=== PATIENT | female | born 1980 | race Caucasian/White ===

== ENCOUNTER 2017-06-21 06:42 | Inpatient (IN) | payer MEDICAID ==
[2017-06-21] VITALS (9 sets, daily range): BP systolic 98–129; BP diastolic 54–67; PULSE 60–77; RESP 16–20
[~2017-06-21] VITALS: Ht 146.1 cm; Wt 59.4 kg
[2017-06-21] MEDS ORDERED: EPHEDrine SULFATE 50 MG/5 ML SYG ONE (07:00)
[2017-06-21] MEDS ORDERED: METHYLERGONOVINE 0.2 MG INJ IM PRN ×2 (07:00→13:30)
[2017-06-21] MEDS ORDERED: CARBOPROST 250 MCG INJ IM PRN ×2 (07:00→13:30)
[2017-06-21] MEDS ORDERED: OXYTOCIN 30 UNITS/LR 500 ML IV SCH (07:00)
[2017-06-21] MEDS ORDERED: LACTATED RINGER'S 1,000 ML IV ONE (07:00)
[2017-06-21] MEDS ORDERED: MISOPROSTOL 200 MCG TAB PR PRN ×2 (07:00→13:30)
[2017-06-21] MEDS ORDERED: OXYTOCIN 30 UNITS/LR 500 ML IV PRN ×2 (07:00→13:30)
[2017-06-21] MEDS ORDERED: OXYTOCIN 30 UNITS/LR 500 ML BAG IV ONE (07:00)
[2017-06-21] MEDS ORDERED: CEFAZOLIN 2 GM/50 ML (PMX) 50 ML IV SCH (07:00)
[2017-06-21] MEDS: LACTATED RINGER'S 1,000 ML IV SCH ×2 (08:05→10:20)
[2017-06-21 08:34] LABS: BASOPHILS % 0.5 % (0.0-2.0); EOSINOPHILS # 0.1 10^3/ul (0.0-0.5); EOSINOPHILS % 1.2 % (0.0-7.0); HEMATOCRIT 37.9 % (37.0-47.0); HEMOGLOBIN 13.3 g/dl (12.0-16.0); LYMPHOCYTES # 1.4 10^3/ul (0.8-2.9); MEAN CORPUSCULAR HGB CONC 35.1 g/dl (32.0-37.0); MEAN CORPUSCULAR VOLUME 91.1 fl (82.0-101.0); MEAN PLATELET VOLUME 12.6 fl (7.4-10.4); MONOCYTE # 0.6 10^3/ul (0.3-0.9); MONOCYTES % 11.1 % (0.0-11.0); NEUTROPHIL # 3.6 10^3/ul (1.6-7.5); NEUTROPHILS % 61.5 % (39.0-77.0); PLATELET COUNT 129 10^3/UL (140-415); RED BLOOD COUNT 4.16 10^6/ul (4.20-5.40); RED CELL DISTRIBUTION WIDTH 14.5 % (11.5-14.5); WHITE BLOOD COUNT 5.8 10^3/ul (4.8-10.8)
[2017-06-21 09:06] LABS: INR 1.05; PROTIME 13.7 Sec (12.2-14.2); PT RATIO 1.1
[2017-06-21 09:07] LABS: PARTIAL THROMBOPLASTIN TIME 31.4 Sec (25.0-35.0)
[2017-06-21] MEDS ORDERED: morphine SULFATE/PF (10 MG/10 ML) INJ ONE (10:11)
[2017-06-21] MEDS ORDERED: PHENYLephrine (100 MCG/ML) 5ML SYG ONE ×2 (10:20→10:56)
--- NOTE | 2017-06-21 10:30 | HP ---
Date/Time of Note Date/Time of Note DATE: 06/21/17 TIME: 10:24 OB - History Hx of Present Free Text/Dictation This is a 36 years old female 03 history of 2 previous section in between admitted to [facility] 39 weeks gestation for repeat and bilateral tubal ligation patient has been under the care of the [place] [facility] her not complicated with gestational diabetes -induced hypertension or any other serious medical or surgical condition of 2 previous Estimated Due Date: Jun 28, 2017 : 4 Para: 3 Care: Good Care Ultrasounds: Normal mid trimester US Obstetrical Complications: None Medical Complications: None Past Family/Social History * Past Medical, Surgical, Family and Obstetric Histories reviewed from chart. Rubella: immune RPR/VDRL: Negative GBS Status: Negative OB Admission Exam Vital Signs Vital Signs Vital Signs Date Time Temp Pulse Resp B/P Pulse Ox O2 Delivery O2 Flow Rate FiO2 06/21/17 07:15 97.9 70 20 118/67 Room Air Physical Exam Heart: Rhythm Normal Lungs: Clear, Equal Membranes: Intact Heart Rate: 130's Decelerations: No Decelerations Varibility: Absent Last 72 hours Lab Results CBC & BMP 06/21/17 08:05 OB Assessment/Plan Reason for admission: other (36 years old history of 2 previous C- section admitted for repeat bilateral tubal ligation) Plan: Other (36 years old 3 of 2 previous section request for bilateral tubal ligation at the time of section admitted at 39 weeks gestation undergoing a repeat and bilateral tubal ligation and has been counseled regarding the failure rate of tubal ligation increased risk of ectopic and future failure to conceive and also she has been counseled regarding complication of the surgery including bowel bladder injury infection hemorrhage and hematoma and she is willing to go ahead with this procedure) MARY JO HOLLAND MD Jun 21, 2017 10:30
[2017-06-21] MEDS ORDERED: ONDANSETRON 4 MG INJ ONE ×2 (10:46→11:57)
[2017-06-21] MEDS ORDERED: METOCLOPRAMIDE 10 MG INJ ONE (11:57)
[2017-06-21] MEDS ORDERED: ONDANSETRON 4 MG INJ IV PRN ×2 (12:00)
[2017-06-21] MEDS ORDERED: HYDROmorphONE (0.2 MG/ML) 10ML SYG IV PRN ×3 (12:00)
[2017-06-21] MEDS ORDERED: KETOROLAC 30 MG INJ IV PRN (12:00)
[2017-06-21] MEDS ORDERED: FENTAnyl 50 MCG/ML VIAL IV PRN ×2 (12:00)
[2017-06-21] MEDS ORDERED: DIPHENHYDRAMINE 50 MG INJ IV PRN ×2 (12:00)
[2017-06-21] MEDS ORDERED: METOCLOPRAMIDE 10 MG INJ IV PRN (12:00)
[2017-06-21] MEDS ORDERED: HYDROmorphONE 1 MG/ML SYG IV PRN ×2 (12:00)
[2017-06-21] MEDS ORDERED: NALOXONE (0.4 MG/ML) INJ IV PRN (12:00)
[2017-06-21] MEDS ORDERED: ZOLPIDEM 5 MG TAB PO PRN (12:00)
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
[2017-06-21] MEDS ORDERED: LANOLIN 7 GM TUBE TOP PRN (13:30)
[2017-06-21] MEDS ORDERED: CEFAZOLIN 1 GM/50 ML (PMX) 50 ML IVPB SCH (13:30)
[2017-06-21] MEDS ORDERED: HYDROCODONE/APAP (5/325) TAB PO PRN ×2 (13:30)
[2017-06-21] MEDS ORDERED: OXYCODONE/ACETAMINOPHEN (5/325) TAB PO PRN ×2 (13:30)
[2017-06-21] MEDS: OXYTOCIN 30 UNITS/LR 500 ML IV SCH ×3 (17:10→21:23)
[2017-06-21] MEDS: KETOROLAC 30 MG INJ IV PRN (21:22)
[2017-06-22] MEDS: OXYTOCIN 30 UNITS/LR 500 ML IV SCH ×2 (01:57→07:03)
[2017-06-22 04:30] VITALS: BP 89/50; PULSE 77; RESP 18
[2017-06-22 07:21] LABS: BASOPHILS % 0.1 % (0.0-2.0); EOSINOPHILS % 0.1 % (0.0-7.0); HEMATOCRIT 36.9 % (37.0-47.0); HEMOGLOBIN 12.5 g/dl (12.0-16.0); LYMPHOCYTES # 1.4 10^3/ul (0.8-2.9); LYMPHOCYTES % 13.5 % (15.0-51.0); MEAN CORPUSCULAR HEMOGLOBIN 30.9 pg (29.0-33.0); MEAN CORPUSCULAR HGB CONC 33.9 g/dl (32.0-37.0); MEAN CORPUSCULAR VOLUME 91.1 fl (82.0-101.0); MEAN PLATELET VOLUME 12.1 fl (7.4-10.4); MONOCYTE # 0.7 10^3/ul (0.3-0.9); MONOCYTES % 6.4 % (0.0-11.0); NEUTROPHIL # 8.3 10^3/ul (1.6-7.5); NEUTROPHILS % 79.7 % (39.0-77.0); PLATELET COUNT 134 10^3/UL (140-415); RED BLOOD COUNT 4.05 10^6/ul (4.20-5.40); RED CELL DISTRIBUTION WIDTH 14.7 % (11.5-14.5); WHITE BLOOD COUNT 10.4 10^3/ul (4.8-10.8)
[2017-06-22 08:15] VITALS: BP 113/59; PULSE 94; RESP 19
[2017-06-22] MEDS: SENNA/DOCUSATE NA (8.6MG/50MG) TAB PO SCH ×2 (09:23→21:13)
[2017-06-22] MEDS: KETOROLAC 30 MG INJ IV PRN (11:04)
[2017-06-22 12:00] VITALS: BP 124/67; PULSE 81; RESP 19
[2017-06-22] MEDS: IBUPROFEN 600 MG TAB PO SCH ×3 (12:00→23:56)
--- NOTE | 2017-06-22 12:24 | QN ---
Documentation Comment POD#1 is stable afebrile No VB +Flatus+Adequate urine VS stable Gen NAD Abd soft NT ND Dressing to be removed Genitalia No blood at perinium --->discharge plan tomorrow --->ambulation HERACLIO ALFARO M.D. Jun 22, 2017 12:23
[2017-06-22 16:15] VITALS: BP 107/69; PULSE 82; RESP 19
[2017-06-22 20:05] VITALS: BP 100/59; PULSE 97; RESP 17
[2017-06-23 04:30] VITALS: BP 103/61; PULSE 78; RESP 20
[2017-06-23] MEDS: IBUPROFEN 600 MG TAB PO SCH ×4 (05:47→23:53)
[2017-06-23 09:15] VITALS: BP 105/56; PULSE 88; RESP 16
[2017-06-23] MEDS: SENNA/DOCUSATE NA (8.6MG/50MG) TAB PO SCH ×2 (09:59→21:27)
--- NOTE | 2017-06-23 12:07 | CONS ---
Date/Time of Note Date/Time of Note DATE: 06/23/17 TIME: 12:06 Consultation Date/Type/Reason Admit Date/Time Jun 21, 2017 at 06:42 Initial Consult Date 06/22/17 Type of Consultation: Anesthesiology Reason for Consultation follow up 24 HR Interval Summary Free Text/Dictation Pt seen and examined on 06/22/17 is POD#1 s/p repeat c/s and BTL. Pt had spinal duramorph injection for post op pain and states her pain is adequately controlled. No N/V/D/C/NOBLES/Numbness in lower extremities. Will follow up. Constitutional: improved, no complaints Exam/Review of Systems Vital Signs Vitals Vital Signs Date Time Temp Pulse Resp B/P Pulse Ox O2 Delivery O2 Flow Rate FiO2 06/23/17 09:15 98.5 88 16 105/56 Room Air 06/21/17 14:00 100 Intake and Output 06/22/17 06/22/17 06/23/17 14:59 22:59 06:59 Intake Total 1240 ml Output Total 600 ml 450 ml Balance 640 ml -450 ml Results Result Diagram: 06/22/17 0703 Medications Medications Current Medications Acetaminophen/ Hydrocodone Bitart ([place] (5/325)) 1 tab Q4H PRN PO PAIN LEVEL 4 -6; Start 06/21/17 at 13:30 Acetaminophen/ Hydrocodone Bitart ([place] (5/325)) 2 tab Q4H PRN PO PAIN LEVEL 7 -10; Start 06/21/17 at 13:30 Oxycodone/ Acetaminophen (Percocet (5/ 325)) 1 tab Q4H PRN PO PAIN LEVEL 4-6; Start 06/21/17 at 13:30 Oxycodone/ Acetaminophen (Percocet (5/ 325)) 2 tab Q4H PRN PO PAIN LEVEL 7-10; Start 06/21/17 at 13:30 Ibuprofen (Motrin) 600 mg Q6 PO Last administered on 06/23/17t 05:47; Admin Dose 600 MG; Start 06/22/17 at 12:00 Simethicone (Mylicon) 160 mg Q8H PRN PO DISTENSION/GAS/BLOATING; Start at 13:30 Senna/Docusate Sodium (Senokot-S) 1 tab BID PO Last administered on 06/23/17t 09:59; Admin Dose 1 TAB; Start 06/22/17 at 09:00 Diphtheria/ Tetanus/Acell Pertussis 0.5 ml 0.5 ml ONCE ONCE IM* ; Start at 09:00; Stop 06/24/17 at 09:01 Oxytocin/Lactated Ringer's 500 ml @ 0 mls/hr ONCE PRN IV For Hemorrhage Management; Start 06/21/17 at 13:30 Methylergonovine Maleate (Methergine) 0.2 mg ONCE PRN IM VAGINAL BLEEDING; Start 06/21/17 at 13:30 Carboprost Tromethamine (Hemabate) 250 mcg ONCE PRN IM VAGINAL BLEEDING; Start 06/21/17 at 13:30 Misoprostol (Cytotec) 1,000 mcg ONCE PRN [place] VAGINAL BLEEDING; Start 06/21/17 at 13:30 STEPHEN AGUERO Jun 23, 2017 12:07
[2017-06-23 15:30] VITALS: BP 116/67; PULSE 73; RESP 18
--- NOTE | 2017-06-23 16:09 | QN ---
Documentation Comment Post day2 Afebrile VSS Abdomen soft Incision dry Good bowel sounds, patient had normal bowel movement Extremities normal MARY JO HOLLAND MD Jun 23, 2017 16:08
[2017-06-23 19:35] VITALS: BP 116/69; PULSE 86; RESP 19
[2017-06-24 03:50] VITALS: BP 104/61; PULSE 70; RESP 19
[2017-06-24] MEDS: IBUPROFEN 600 MG TAB PO SCH ×2 (05:31→12:59)
[2017-06-24] MEDS ORDERED: DIPHTH/TET/ACEL PERTUSS (ADULT) 0.5 ML VIAL IM* ONE (09:00)
[2017-06-24] MEDS: SENNA/DOCUSATE NA (8.6MG/50MG) TAB PO SCH (09:18)
[2017-06-24 09:30] VITALS: BP 116/64; PULSE 72; RESP 16
--- NOTE | 2017-06-24 13:15 | PD.PPDC ---
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
--- NOTE | 2017-06-24 13:19 | DS ---
Date/Time of Note Date/Time of Note DATE: 06/24/17 TIME: 13:16 Discharge Summary Admission/Discharge Info Admit Date/Time Jun 21, 2017 at 06:42 Discharge Date/Time June 24 1330 Discharge Diagnosis Post day 3 Patient Condition: Good Procedures Repeat Hx of Present Illness Term history of previous Hospital Course Satisfactory uneventful Home Meds No Active Prescriptions or Reported Meds Follow-up Plan Post instructions given recommended to make appointment to be seen at the clinic in 1 week Primary Care Provider Care Physician No Primary Time spent on discharge: < 30 minutes MARY JO HOLLAND MD Jun 24, 2017 13:19
== END 2017-06-24 15:30 | disposition home or self-care (01) | DRG 766 ==
LOC: L-D 06:42 → PP1 15:07
PROVIDERS: ADMIT Obstetrics & Gynecology; ATTEND Obstetrics & Gynecology
PROC: 3E0P3VZ Introduction of Hormone into Female Reproductive, Percutaneous Approach (ICD-10-PCS; 2017-06-21)
PROC: 10D00Z1 Extraction of Products of Conception, Low, Open Approach (ICD-10-PCS; principal; 2017-06-21 09:30)
DX: O34.211 Maternal care for low transverse scar from previous cesarean delivery (principal); Z37.0 Single live birth; Z3A.39 39 weeks gestation of pregnancy
CPT/HCPCS: 85025; 85610; 85730; 86592; 86850; 86900; 86901; 88302; 90715; 99464; J0690; J1885; J2274; J2370; J2405; J2590; J2765; J7120